=== PATIENT | female | born 1960 | race Caucasian/White ===

== ENCOUNTER 2023-06-11 08:12 | Day surgery (SDC) | payer BC ==
--- NOTE | 2023-06-03 14:07 | HP ---
DATE OF SURGERY: 06/11/2023 HISTORY OF PRESENT ILLNESS: The patient is a 63-year-old female who presents with complaints of severe epigastric pain with eating. She has been on omeprazole. She does have a history of some peptic ulcer disease in the past. It looks like she had a gallbladder work up showing she had multiple cholelithiasis and possible porcelain gallbladder. PAST MEDICAL HISTORY: Heartburn, asthma, peptic ulcer disease, sinus infection. PAST SURGICAL HISTORY: Back surgery. ALLERGIES: NKDA. MEDICATIONS: Omeprazole, Biotin, vitamins. FAMILY HISTORY: None reported. SOCIAL HISTORY: None reported. REVIEW OF SYSTEMS: CONSTITUTIONAL: Denies fever or chills. CHEST: Denies shortness of breath. CVS: Denies chest pain. ABDOMEN: Reports epigastric pain. PHYSICAL EXAMINATION: GENERAL: No acute distress. CHEST: Nonlabored. No shortness of breath. CVS: Regular rate and rhythm. ABDOMEN: Soft. IMPRESSION: Severe epigastric pain, reflux and cholelithiasis. PLAN: EGD and laparoscopic cholecystectomy with Dr. Jt Lopez. As dictated by Estrellita Chang NP.
[~2023-06-11 08:12] MED LIST: Lactated Ringers 1,000 ML IV ONE; Sensorcaine 0.25% 10 ML ONE
[2023-06-11] MEDS ORDERED: Lactated Ringers 1,000 ML IV ONE (08:38)
[2023-06-11] MEDS ORDERED: MEFOXIN 2 GM PREMIX** 2 GM/50 ML ML IV ONE (08:38)
[2023-06-11] MEDS ORDERED: MEFOXIN 2 GM PREMIX** 2 GM/50 ML ML IV SCH (09:00)
[2023-06-11] MEDS ORDERED: Lactated Ringers 1,000 ML IV SCH (09:00)
[2023-06-11] MEDS ORDERED: Zofran 4 MG/2 ML VIAL ONE ×2 (10:56→12:55)
[2023-06-11] MEDS ORDERED: DIPRIVAN 200 MG/20 ML IV ONE (10:56)
[2023-06-11] MEDS ORDERED: Xylocaine-Mpf 2% 5 Ml Vial ONE (10:56)
[2023-06-11] MEDS ORDERED: Decadron 4 MG INJ ONE (10:56)
[2023-06-11] MEDS ORDERED: Zemuron 100 MG/10 ML ONE (10:56)
[2023-06-11] MEDS ORDERED: SUBLIMAZE 100 MCG/2 ML ONE ×2 (10:57→12:24)
[2023-06-11] MEDS ORDERED: Versed 2 MG/2 ML Injection ONE (10:57)
[2023-06-11] MEDS ORDERED: BRIDION 200MG/2ML IV ONE (11:00)
[2023-06-11] MEDS ORDERED: Hydromorphone 1 mg/ml Injection ONE (12:27)
--- NOTE | 2023-06-11 13:17 | OP ---
SURGERY DATE/TIME: 06/11/2023 1104 PREOPERATIVE DIAGNOSIS: Symptomatic cholelithiasis. POSTOPERATIVE DIAGNOSES: 1) Chronic gallbladder disease with cholelithiasis. 2) EGD was normal upper examination. PROCEDURES: 1) Laparoscopic cholecystectomy. 2) EGD. SURGEON: Jt Lopez M.D. ANESTHESIA: General. COMPLICATIONS: None. CONDITION: Stable. INDICATION: The patient has a multitude of upper abdominal symptoms including epigastric pain, nausea, vomiting. She does have symptomatic cholelithiasis and will need a laparoscopic cholecystectomy. DESCRIPTION OF PROCEDURE: The patient is taken to surgery. General anesthetic. Routine prep and drape. Veress needle inserted. Opening pressure of -1, insufflating pressure 14. Four ports were placed. Good visualization. There was chronic inflammation. Adhesions taken down. Cystic duct defined. Cystic artery defined. Both structures triply clipped and transected. Clips noted across and well approximated. Gallbladder rolled out of gallbladder fossa. Gallbladder delivered through the upper abdominal port. The hole closure device was used. The field was clean and dry. CO2 was exsufflated. Fascia had been closed. Skin closed with radha. Sterile dressing applied. Upper scope is performed. Esophagus normal down to gastroesophageal junction. Gastroesophageal junction normal. Fundus, body and antrum normal. Pylorus normal. Duodenal bulb normal. Second portion of duodenum normal. Scope withdrawn.
[2023-06-11 14:23] VITALS: RESP 16; O2SAT 94
[2023-06-11 14:36] VITALS: BP 158/85; PULSE 55; TEMP 97.2
== END 2023-06-11 14:45 | disposition home or self-care (01) ==
LOC: SDC 08:12
PROVIDERS: ATTEND Surgery
DX: K80.20 Calculus of gallbladder without cholecystitis without obstruction (principal); K82.9 Disease of gallbladder, unspecified
CPT/HCPCS: J0694; J1100; J1170; J2250; J2405; J2704; J3010